=== PATIENT | female | born 1995 | race Caucasian/White ===

== ENCOUNTER 2018-05-16 00:28 | Emergency (ER) | payer SELFPAY ==
[2018-05-16] MEDS ORDERED: Lidocaine 2% PF * 5 ML VIAL ONE (00:46)
--- NOTE | 2018-05-16 00:51 | ED ---
Laceration/Wound HPI - HPI Summary HPI Summary: A 22 y/o female presents to [facility] with a chief complaint of a laceration to her 5th left digit at around 00:01 05/16/18. Per triage note, she cut her finger with a kitchen knife and rates her pain as a 6/10. She does not have a fever. - History of Current Complaint Stated Complaint: FINGER CUT Time Seen by Provider: 05/16/18 00:43 Hx Obtained From: Patient Onset/Duration: Sudden Onset, Lasting Minutes, Still Present Aggravating: Nothing Alleviating: Nothing Timing: Constant Onset Severity: Moderate Current Severity: Moderate Pain Intensity: 6 Pain Scale Used: 0-10 Numeric Associated Signs & Symptoms: Negative - fever - Allergy/Home Medications Allergies/Adverse Reactions: Allergies Allergy/AdvReac Type Severity Reaction Status Date / Time No Known Allergies Allergy Verified 05/16/18 00:30 Home Medications: Home Medications Norgestimate-Ethinyl Estradiol [Ortho-Cyclen 28 Tablet] 1 tab PO DAILY 05/16/18 [History Confirmed 05/16/18] PMH/Surg Hx/FS Hx/Imm Hx Endocrine/Hematology History: Denies: Hx Diabetes Cardiovascular History: Denies: Hx Hypertension Infectious Disease History: No Infectious Disease History: Denies: Traveled Outside the [place] in Last 30 Days - Family History Known Family History: Positive: Diabetes - father Negative: Hypertension - Social History Alcohol Use: None Substance Use Type: Reports: None Smoking Status (MU): Never Smoked Tobacco Review of Systems Negative: Fever Positive: Other - Positive: left 5th finger laceration and pain All Other Systems Reviewed And Are Negative: Yes Physical Exam - Summary Physical Exam Summary: VITAL SIGNS: Reviewed. GENERAL: Patient is a well-developed and nourished FEMALE who is lying comfortable in the stretcher. Patient is not in any acute respiratory distress. HEAD AND FACE: No signs of trauma. No ecchymosis, hematomas or skull depressions. No sinus tenderness. EYES: PERRLA, EOMI x 2, No injected conjunctiva, no nystagmus. EARS: Hearing grossly intact. Ear canals and tympanic membranes are within normal limits. MOUTH: Oropharynx within normal limits. NECK: Supple, trachea is midline, no adenopathy, no JVD, no carotid bruit, no c- spine tenderness, neck with full ROM. CHEST: Symmetric, no tenderness at palpation LUNGS: Clear to auscultation bilaterally. No wheezing or crackles. CVS: Regular rate and rhythm, S1 and S2 present, no murmurs or gallops appreciated. ABDOMEN: Soft, non-tender. No signs of distention. No rebound no guarding, and no masses palpated. Bowel sounds are normal. EXTREMITIES: 1cm laceration over palmar surface distal surface left 5th finger. FROM in all major joints, no edema, no cyanosis or clubbing. NEURO: Alert and oriented x 3. No acute neurological deficits. Speech is normal and follows commands. SKIN: Dry and warm Triage Information Reviewed: Yes Vital Signs On Initial Exam: Initial Vitals Temp Pulse Resp BP Pulse Ox 96.8 F 71 16 127/80 100 05/16/18 00:29 05/16/18 00:29 05/16/18 00:29 05/16/18 00:29 05/16/18 00:29 Vital Signs Reviewed: Yes Procedures - Laceration/Wound Repair 1 Location: Other - palmar surface distal left 5th finger Description: Linear Anesthesia: 2.0%, Lido Length, Depth and Shape: 1 cm Laceration/Wound Explored: clean Closure: Skin Adhesive Suture Type: Nylon Number of Sutures: 3 Diagnostics - Vital Signs Vital Signs Temp Pulse Resp BP Pulse Ox 05/16/18 00:29 96.8 F 71 16 127/80 100 - Laboratory Lab Statement: Any lab studies that have been ordered have been reviewed, and results considered in the medical decision making process. Laceration Repair Course/Dx - Course Course Of Treatment: A 22 y/o female presents to [facility] with a chief complaint of a laceration to her 5th left digit at around 00:01 05/16/18. The physical exam revealed a 1cm laceration over palmar surface distal surface left 5th finger. A laceration repair procedure was done using 2% Lido with no epi, and 3 stitches of nylon. She was given wound care instructions and was told to get her stitches out in 10 days. She will be discharged. Strict return precautions given. She is agreeable with this plan. - Clinical Impression Provider Diagnoses: Finger laceration Discharge - Sign-Out/Discharge Documenting (check all that apply): Patient Departure - DC - Discharge Plan Condition: Stable Disposition: HOME Patient Education Materials: Care For Your Stitches (ED) Forms: *Work Release Referrals: [facility] [Outside] Additional Instructions: RETURN TO THE EMERGENCY DEPARTMENT FOR CHANGING OR WORSENING SYMPTOMS. FOLLOW UP WITH PCP IN 1-2 DAYS. Stitches out in 10 days. - Billing Disposition and Condition Condition: STABLE Disposition: Home - Attestation Statements Document Initiated by Lee: Yes Documenting Scribe: Igor Silver Provider For Whom Lee is Documenting (Include Credential): Ochoa Oconnell MD Scribe Attestation: I, Igor Silver, scribed for Ochoa Oconnell MD on 05/17/18 at 0532. Scribe Documentation Reviewed: Yes Provider Attestation: The documentation as recorded by the Igor roche accurately reflects the service I personally performed and the decisions made by me, Ochoa Oconnell MD Status of Scribe Document: Viewed
[2018-05-16] MEDS ORDERED: Lidocaine 2% PF * 5 ML VIAL INJ ONE (01:20)
[2018-05-16 01:29] VITALS: BP 112/71
== END 2018-05-16 01:33 | disposition home or self-care (01) ==
LOC: ED 00:28
DX: S61.217A Laceration without foreign body of left little finger without damage to nail, initial encounter (principal); W26.0XXA Contact with knife, initial encounter; Y92.9 Unspecified place or not applicable
CPT/HCPCS: 12001; 99282